=== PATIENT | female | born 1995 | race Caucasian/White ===

== ENCOUNTER 2017-12-26 01:29 | Emergency (ER) | payer OTHER ==
[2017-12-26 01:31] VITALS: BP 124/84; TEMP 98.2; BMI 25.1
[2017-12-26 01:38] VITALS: RESP 16
--- NOTE | 2017-12-26 04:11 | ED PDOC ---
HPI: Psych/Substance Abuse Time Seen by Provider: 12/26/17 01:36 Chief Complaint (Nursing): Alcohol Ingestion ED Caveat: Intoxicated History Per: EMS History/Exam Limitations: intoxication Additional Complaint(s): 22 yo F brought in by EMS for vomiting and alcohol intoxication. Patient unable to provide additional history as she is intoxicated. Past Medical History Vital Signs: Last Vital Signs Temp 98.2 F 12/26/17 01:34 Pulse 96 H 12/26/17 01:34 Resp 16 12/26/17 01:34 BP 124/84 12/26/17 01:34 Pulse Ox 100 12/26/17 01:34 - Family History Family History: States: Unknown Family Hx - Allergies Allergies/Adverse Reactions: Allergies Allergy/AdvReac Type Severity Reaction Status Date / Time No Known Allergies Allergy Verified 12/26/17 01:37 Review of Systems Review Of Systems: ROS cannot be obtained secondary to pt's inabilty to answer questions. (patient is intoxicated, unable to obtain proper ROS) Physical Exam - Reviewed Vital Signs Reviewed: Yes - Physical Exam Appears: Positive for: Well, Non-toxic, No Acute Distress Head Exam: Positive for: ATRAUMATIC, NORMAL INSPECTION, NORMOCEPHALIC Skin: Positive for: Normal Color, Warm, DRY Eye Exam: Positive for: EOMI, Normal appearance, PERRL ENT: Positive for: Normal ENT Inspection, Other (+odor of alcohol on patient's breath) Neck: Positive for: Normal, Painless ROM Cardiovascular/Chest: Positive for: Regular Rate, Rhythm Respiratory: Positive for: CNT, Normal Breath Sounds Gastrointestinal/Abdominal: Positive for: Normal Exam, Soft. Negative for: Tenderness, Guarding Extremity: Positive for: Normal ROM. Negative for: Deformity, Swelling - ECG O2 Sat by Pulse Oximetry: 100 Medical Decision Making Medical Decision Making: Plan : - ED observation until the patient is clinically sober. 0345 Patient sleeping comfortably in no acute distress, breathing easy and unlabored. 0420 FS 95 0545 On re-evaluation, patient is still intoxicated, difficult to arouse completely. BAL drawn. 0610 BAL 148. On re-evaluation, patient is AAOx3, states that she feels better and wants to go home. She admits that she had alot to drink, but has no complaints. Patient is speaking with no slurred speech, no tremors, able to ambulate with a steady gait. Patient is stable for d/c. Disposition - Clinical Impression Clinical Impression: Alcohol intoxication - Patient ED Disposition Is Patient to be Admitted: No Counseled Patient/Family Regarding: Studies Performed, Diagnosis, Need For Followup - Disposition Disposition: Routine/Home Disposition Time: 06:10 Condition: STABLE Instructions: Alcohol Abuse and Alcoholism (DC) Forms: [employer] (Gabonese) - PA / [employer] / Resident Statement MD/DO has reviewed & agrees with the documentation as recorded.
[2017-12-26 06:39] VITALS: PULSE 89; O2SAT 99
== END 2017-12-26 06:20 | disposition home or self-care (01) ==
LOC: H.ER 01:29
DX: F10.129 Alcohol abuse with intoxication, unspecified (principal)